=== PATIENT | female | born 1960 | race Two or more races ===

== ENCOUNTER 2024-07-01 22:38 | Inpatient (IN) | payer OTHER, MEDICAID ==
[~2024-07-01] VITALS: Ht 165.1 cm; Wt 72.4 kg
[2024-07-02] VITALS (8 sets, daily range): BP systolic 100–124; BP diastolic 58–68; PULSE 77–97; RESP 17–20; TEMP 97.4–98.7; O2SAT 93–97
--- NOTE | 2024-07-02 00:52 | DVHHPRES ---
History of Present Illness Resident Creating Document: LINDA GOMEZ RESIDENT History of Present Illness 64-year-old female with past medical history of herniated discs and multiple spinal surgeries over the last 2 months, was transferred from [facility] due to a chief complaint of increasing lower back pain since yesterday 06/30/2024. Per patient, she was trying to sit up when all of a sudden she started experiencing a tearing, sharp pain, 10/10 and constant. Denies having similar symptoms in the past. Patient has had four back surgeries in the last 2 months for herniated discs, at baseline reports decreased strength in right leg and has been immobile since May 2024, moreover, patient was discharged from rehab facility in [place] 2 days ago. Per patient, she is unable to stand and only able to move to chair. On review of systems, patient is complaining of fatigue, dyspnea and dysuria. Past Medical History Herniated disc Past Surgical History Spine surgery x4, left hip replacement 2 years ago, gastric sleeve 2016, right wrist surgery Smoke: No ALCOHOL: none Drugs: Marijuana Lives: with Family Review of Systems Constitutional: Yes: Malaise; No: Fever, Chills, Sweats, Weakness, Other Eyes: No: Pain, Vision change, Conjunctivae inflammation, Eyelid inflammation, Other, Redness ENT: No: Ear pain, Ear discharge, Nose pain, Nose discharge, Nose congestion, Mouth pain, Mouth swelling, Throat pain, Throat swelling, Other Respiratory: Shortness of breath; No: Cough, Dry, SOB with excertion, Wheezing, Hemoptysis, Pleuritic Pain, Sputum, Wheezing, Other Cardiovascular: No: Chest Pain, Palpitations, Orthopnea, Paroxysmal Noc. Dyspnea, Edema, Lt Headedness, Other Gastrointestinal: No: Nausea, Vomiting, Abdominal Pain, Diarrhea, Constipation, Melena, Hematochezia, Other Genitourinary: Dysuria; No Frequency, No Incontinence, No Hematuria, No Retention, No Other Musculoskeletal: No: other, neck pain, shoulder pain, arm pain, back pain, hand pain, leg pain, foot pain Skin: No: Rash, Lesions, Jaundice, Bruising, Other Neurological: No: Weakness, Numbness, Incoordination, Change in speech, Confusion, Seizures, Other Allergies: Coded Allergies: NO KNOWN ALLERGIES (Unverified , 07/02/24) Medications Current Medications Medications Dose Ordered Sig/Laisha Route Start Time Stop Time Status Last Admin Dose Admin Acetaminophen 650 mg Q6HP PRN PO 07/02/24 00:45 UNV Enoxaparin Sodium 30 mg DAILY SC 07/02/24 10:00 UNV Gabapentin 100 mg TID PO 07/02/24 06:00 UNV Polyethylene Glycol 17 gm DAILYPRN PRN PO 07/02/24 01:00 UNV Exam General Appearance: Alert, Oriented X3, Cooperative, No acute distress HEENT: Atraumatic, PERRLA, EOMI, Mucous membr. moist/pink Respiratory: Clear to auscultation, Normal air movement Cardiovascular: Regular rate, Normal S1, Normal S2, No murmurs, Other (Suprapubic tenderness to palpation) Abdominal: Normal bowel sounds Extremities: No edema, Normal pulses, Other (Right lower extremity cooler than left lower extremity, however, pulses palpable, denies any paresthesia or pain) Skin: No rashes, No significant lesion Neuro: Normal speech, Sensation intact, Other (Mildly decreased strength in right lower extremity) Psych/Mental Status: Mental status NL, Mood NL Assessment/Plan Assessment/Plan Multiple herniated discs? S/p spine surgery x4 over the last 2 months Acute complicated UTI Generalized weakness - straight catheterization to obtain UA - IV ceftriaxone - low-dose gabapentin (100 mg t.i.d.) due to constipation - acetaminophen 650 mg as needed - urine bacterial culture Constipation Stercoral colitis due to above - CT abdomen pelvis at [facility] showed constipation with large stool burden within the rectum imaging features reflecting stercoral colitis - patient had 1 large BM at [facility] - MiraLax 17 g scheduled daily - Colace 100 mg b.i.d. scheduled - IV NS at 75 cc/hour DVT prophylaxis: Levonox 40mg Goals of care: Full code, discussed for >16 minutes on 07/02/24 Plan discussed with patient Plan discussed with Dr. Martines Plan discussed with: Patient, Other (RN) My Orders Orders - LINDA GOMEZ RESIDENT Procedure Category Date Status Time Admit ADMIT 07/02/24 Transmitted 00:43 Code Status CODE 07/02/24 Transmitted 00:43 Review Orders With MELINA 07/02/24 In Process Adm. 00:43 Regular Diet DIET 07/02/24 Transmitted Breakfast Acetaminophen Tablet PHA 1/25/25 Logged (Tylenol Tablet) 00:45 Notify Md Of Changes MELINA 07/02/24 In Process From Base 00:43 Advance Directive MELINA 07/02/24 In Process 00:43 Basic Metabolic Panel LAB 07/02/24 Logged 00:43 Urinalysis LAB 07/02/24 Logged 00:43 Complete Blood Count LAB 07/02/24 Logged 00:43 Patient Condition ORDERS 07/02/24 Transmitted 00:43 Allergies MELINA 07/02/24 In Process 00:43 Hemoglobin A1c LAB 07/02/24 Logged 00:43 Enoxaparin Sodium PHA 07/02/24 Logged (Lovenox) 10:00 Notify Md Of Changes MELINA 07/02/24 In Process From Base 00:43 Gabapentin Capsule PHA 07/02/24 Logged (Neurontin Capsule) 06:00 Polyethylene Glycol PHA 07/02/24 Logged 17g Powder (Miralax 01:00 Date of Service: Jul 02, 2024 Billing Provider: JAYNA MARTINES MD Common Visit Codes: [id number] INP/OBS CARE (HIGH) Secondary Visit Codes: [id number] CARE PLAN 30 MINUTES LINDA GOMEZ RESIDENT Jul 02, 2024 00:52 JAYNA MARTINES MD Jul 03, 2024 00:20
[2024-07-02] MEDS ORDERED: POLYETHYLENE GLYCOL 17 GM PWDR PO PRN ×2 (01:00→04:30)
[2024-07-02 01:37] LABS: Basophils # (auto) 0.1 10 ^3/uL (0-0.2); Basophils % (auto) 1.3 % (0.0-2.0); Eosinophils # (auto) 0.5 10 ^3/uL (0-0.8); Eosinophils % (auto) 6.9 % (0.0-7.0); Hemoglobin 11.4 g/dL (12.2-16.2); Lymphocytes # (auto) 1.5 10 ^3/uL (0.4-5.4); Lymphocytes % (auto) 19.5 % (10.0-50.0); Mean Corpuscular Hemoglobin 26.4 pg (28.0-32.0); Mean Corpuscular Hgb Conc. 30.8 g/dL (32.0-36.0); Mean Corpuscular Volume 85.8 fL (80.0-100.0); Monocytes # (auto) 0.5 10 ^3/uL (0-1.3); Monocytes % (auto) 6.9 % (0.0-12.0); Neutrophils # (auto) 4.9 10 ^3/uL (1.6-8.6); Neutrophils % (auto) 65.4 % (37.0-80.0); Platelet Count (auto) 330 10^3/uL (140-450); Red Blood Cells 4.31 10^6/uL (4.0-5.20); Red Cell Distribution Width 18.5 % (11.8-14.3); White Blood Cell 7.5 10^3/uL (4.4-10.8)
[2024-07-02 01:47] LABS: Potassium 4.2 mmol/L (3.5-5.1); Sodium 144 mmol/L (136-145)
[2024-07-02 01:48] LABS: Anion Gap 8 (5-15); Calcium 9.8 mg/dL (8.7-10.4); Carbon Dioxide 28 mmol/L (20-31)
[2024-07-02 01:53] LABS: BUN/Creatinine Ratio 25.6 (10.0-20.0); Blood Urea Nitrogen 11 mg/dL (9-23); Glucose 81 mg/dL (74-106)
[2024-07-02 01:56] LABS: Chloride 108 mmol/L (98-107)
[2024-07-02] MEDS ORDERED: ARIP20TA4 PO (02:04)
[2024-07-02] MEDS ORDERED: TRAM50TA2 PO (02:04)
[2024-07-02] MEDS ORDERED: SERT100T PO (02:04)
[2024-07-02] MEDS ORDERED: TRAZ-181 PO (02:04)
[2024-07-02] MEDS: SODIUM CHLORIDE 0.9% 1,000 ML IV SCH (04:30)
[2024-07-02] MEDS: ACETAMINOPHEN 325 MG TAB PO PRN (04:42)
[2024-07-02 05:20] LABS: Urine Bacteria FEW /hpf (None Seen); Urine Blood Negative /uL (Negative); Urine Clarity Clear (Clear); Urine Color Yellow (Yellow); Urine Mucus FEW (None Seen); Urine Protein, UAD TRACE (Negative); Urine Squamous Epithelial Cell FEW /hpf (<5); Urine Urobilinogen Normal (Negative); Urine WBC 16 /HPF (0-5); Urine pH 5.5 (5.0-9.0)
[2024-07-02] MEDS: GABAPENTIN 100 MG CAP PO SCH (05:38)
--- NOTE | 2024-07-02 06:10 | DVH ---
CHEST RADIOGRAPH Indication: Dyspnea Technique: Single frontal view of the chest was obtained Comparison: None IMPRESSION: The heart appears normal in size. The lungs appear clear without focal airspace opacity, effusion, o r pneumothorax.
[2024-07-02] MEDS: cefTRIAXone 1GM/50ML D5W 50 ML IV SCH (09:23)
[2024-07-02] MEDS: ENOXAPARIN SOD 40 MG/0.4 ML SYRINGE SC SCH (09:23)
[2024-07-02] MEDS: DOCUSATE SOD 100 MG CAP PO SCH (09:23)
[2024-07-02] MEDS ORDERED: ENOXAPARIN SOD 40 MG/0.4 ML SYRINGE SC SCH (10:00)
[2024-07-02] MEDS ORDERED: ENOXAPARIN SOD 30 MG/0.3 ML SYRINGE SC SCH (10:00)
[2024-07-02] MEDS: HYDROcodone-ACET 5/325MG TAB PO PRN (21:30)
[2024-07-03] VITALS (8 sets, daily range): BP systolic 108–131; BP diastolic 64–89; PULSE 67–94; RESP 18–20; TEMP 97.9–98.2; O2SAT 92–96
[2024-07-04] VITALS (8 sets, daily range): BP systolic 106–124; BP diastolic 54–85; PULSE 73–104; RESP 15–18; TEMP 97.4–98; O2SAT 92–97
--- NOTE | 2024-07-04 11:06 | DVHPN2 ---
Progress Note Date Seen: Jul 04, 2024 Medical Necessity Reason Pt with a Central, PICC or Fol: Yes The following are medically ne: Foster Catheter Subjective Patient reports: No new complaints Review of Systems: HEENT:Normal, CVS:Normal, RESPIRATORY:Normal, GI:Normal, :Normal, MSK:Normal, NEURO:Normal Objective vital signs Vital Sign Date Time Temp Pulse Resp B/P (MAP) Pulse Ox O2 Delivery O2 Flow Rate FiO2 07/04/24 08:46 97.9 73 15 112/76 (88) 96 97.9 07/03/24 20:00 Nasal Cannula* 2 28 Total Intake and Output 07/03/24 07/03/24 07/04/24 15:00 23:00 07:00 Intake Total 286 ml 722 ml 1000 ml Balance 286 ml 722 ml 1000 ml medications Current Medications Medications Dose Ordered Sig/Laisha Route Start Time Stop Time Status Last Admin Dose Admin Acetaminophen 650 mg Q6HP PRN PO 07/02/24 05:00 07/04/24 05:27 650 MG Enoxaparin Sodium 30 mg DAILY SC 07/02/24 10:00 UNV Gabapentin 100 mg TID PO 07/02/24 06:00 07/04/24 05:27 100 MG Enoxaparin Sodium 40 mg DAILY SC 07/02/24 10:00 07/04/24 09:13 40 MG Polyethylene Glycol 17 gm DAILYPRN PRN PO 07/02/24 04:30 Docusate Sodium 100 mg BID PO 07/02/24 10:00 07/02/24 21:31 100 MG Ceftriaxone Sodium 50 ml @ 100 mls/hr DAILY@09 IV 07/02/24 09:00 07/04/24 09:13 100 MLS/HR Acetaminophen/ Hydrocodone Bitart 1 tab Q6HPRN PRN PO 07/02/24 21:15 07/04/24 09:13 1 TAB Examination: GENERAL:Normal, HEENT:Normal, NECK:Normal, LUNGS:Normal, CVS:Normal, ABDOMEN:Normal, MSK:Normal, SKIN:Normal, NEURO:Normal, :Normal laboratory and microbiology Laboratory Tests 07/02/24 01:25 Test 07/02/24 01:25 Range/Units Serum Glucose 81 74-106 mg/dL Microbiology Date/Time Source Procedure Growth Status 07/02/24 05:08 Voided Urine Urine Culture - Preliminary Resulted Problem List/Assessment/Plan Problem List/Assessment/Plan #1 back pain s/p back surgery: ct scan #2 uti: unasyn #3 bedbound/functional quadriplegia; pt eval advance care planning- full code- time spent 19 mins Plan discussed with: Patient Date of Service: Jul 04, 2024 Billing Provider: JHONATHAN CARDOSO MD Common Visit Codes: [id number] INP/OBS CARE(HIGH) Secondary Visit Codes: [id number] CARE PLAN 30 MINUTES JHONATHAN CARDOSO MD Jul 04, 2024 11:06
[2024-07-04] MEDS: AMPICILLIN & SULBACTAM SODIUM 3 GM in SODIUM CHL 0.9% 100 ML IV SCH (12:55)
--- NOTE | 2024-07-04 13:32 | DVH ---
EXAM: CT LS SPINE WO CONTRAST INDICATION: back pain EXAM DATE: 07/04/2024 01:07 PM COMPARISON: None TECHNIQUE: Multiple axial CT images of the lumbar spine were obtained using bone algorithm. Axial and coronal reformatting was done. Bone and soft tissue windows were reviewed. Radiation Dose Information: CT Dose: CTDI volume is 23.03 mGy. Dose-length product is 782.78 mGy*cm Findings: There are 5 nonrib-bearing lumbar vertebrae. Spinal fusion L2-L5 with intervertebral disc spacers. There is no evidence of an acute fracture or spondylolisthesis. The vertebral body heights are well-m aintained. No spinal canal stenosis. The alignment is within normal limits. The paraspinal soft tissues appear within normal limits. Small hiatal hernia. Partiall visualized tubing in the anterior pelvis (axial image 119). Left renal cysts. Impression: 1. No evidence of an acute fracture. 2. Spinal fusion L2-L5 with intervertebral disc spacers.
[2024-07-05] VITALS (8 sets, daily range): BP systolic 105–145; BP diastolic 66–77; PULSE 74–94; RESP 18–20; TEMP 97.4–98.8; O2SAT 92–100
[2024-07-05 06:00] LABS: Basophils # (auto) 0.1 10 ^3/uL (0-0.2); Basophils % (auto) 1.2 % (0.0-2.0); Eosinophils # (auto) 0.5 10 ^3/uL (0-0.8); Eosinophils % (auto) 8.2 % (0.0-7.0); Hematocrit 35.1 % (36.0-46.0); Hemoglobin 10.8 g/dL (12.2-16.2); Lymphocytes # (auto) 1.6 10 ^3/uL (0.4-5.4); Lymphocytes % (auto) 27.1 % (10.0-50.0); Mean Corpuscular Hgb Conc. 30.8 g/dL (32.0-36.0); Mean Corpuscular Volume 87.7 fL (80.0-100.0); Monocytes # (auto) 0.4 10 ^3/uL (0-1.3); Monocytes % (auto) 7.4 % (0.0-12.0); Neutrophils # (auto) 3.3 10 ^3/uL (1.6-8.6); Neutrophils % (auto) 56.1 % (37.0-80.0); Nucleated Red Blood Cells % 0.2 %; Platelet Count (auto) 294 10^3/uL (140-450); Red Cell Distribution Width 18.5 % (11.8-14.3); White Blood Cell 5.9 10^3/uL (4.4-10.8)
[2024-07-05 06:27] LABS: Alkaline Phosphatase 95 U/L (46-116); Anion Gap 9 (5-15); BUN/Creatinine Ratio 23.3 (10.0-20.0); Calcium 9.2 mg/dL (8.7-10.4); Carbon Dioxide 24 mmol/L (20-31); Potassium 3.5 mmol/L (3.5-5.1); Sodium 144 mmol/L (136-145)
[2024-07-05 06:28] LABS: Alanine Aminotransferase < 9 U/L (7-40); Albumin 3.1 g/dL (3.2-4.8); Aspartate Aminotransferase 12 U/L (13-40); Bilirubin, Total 0.2 mg/dL (0.2-1.0); Blood Urea Nitrogen 7 mg/dL (9-23); Chloride 111 mmol/L (98-107); Glucose 109 mg/dL (74-106); Total Protein 5.2 g/dL (5.7-8.2)
--- NOTE | 2024-07-05 10:11 | DVHPN2 ---
Progress Note Date Seen: Jul 05, 2024 Medical Necessity Reason Pt with a Central, PICC or Fol: Yes The following are medically ne: Foster Catheter Subjective Patient reports: No new complaints Review of Systems: HEENT:Normal, CVS:Normal, RESPIRATORY:Normal, GI:Normal, :Normal, MSK:Normal, NEURO:Normal Objective vital signs Vital Sign Date Time Temp Pulse Resp B/P (MAP) Pulse Ox O2 Delivery O2 Flow Rate FiO2 07/05/24 05:00 98.8 88 18 114/71 (85) 95 98.8 07/04/24 20:00 Room Air* 0 21 Total Intake and Output 07/04/24 07/04/24 07/05/24 15:00 23:00 07:00 Intake Total 268 ml 825 ml 580 ml Output Total 550 ml Balance 268 ml 825 ml 30 ml medications Current Medications Medications Dose Ordered Sig/Laisha Route Start Time Stop Time Status Last Admin Dose Admin Acetaminophen 650 mg Q6HP PRN PO 07/02/24 05:00 07/04/24 05:27 650 MG Enoxaparin Sodium 30 mg DAILY SC 07/02/24 10:00 UNV Gabapentin 100 mg TID PO 07/02/24 06:00 07/05/24 05:25 100 MG Enoxaparin Sodium 40 mg DAILY SC 07/02/24 10:00 07/04/24 09:13 40 MG Polyethylene Glycol 17 gm DAILYPRN PRN PO 07/02/24 04:30 Docusate Sodium 100 mg BID PO 07/02/24 10:00 07/02/24 21:31 100 MG Acetaminophen/ Hydrocodone Bitart 1 tab Q6HPRN PRN PO 07/02/24 21:15 07/05/24 05:25 1 TAB Ampicillin Sodium/ Sulbactam Sodium 3 gm/Sodium Chloride 100 ml @ 100 mls/hr Q6HR IV 07/04/24 12:30 07/05/24 05:25 100 MLS/HR Examination: GENERAL:Normal, HEENT:Normal, NECK:Normal, LUNGS:Normal, CVS:Normal, ABDOMEN:Normal, MSK:Normal, SKIN:Normal, NEURO:Normal, :Normal laboratory and microbiology Laboratory Tests 07/05/24 05:41 Test 07/05/24 05:41 Range/Units Serum Glucose 109 H 74-106 mg/dL Microbiology Date/Time Source Procedure Growth Status 07/02/24 05:08 Voided Urine Urine Culture - Preliminary Resulted Problem List/Assessment/Plan Problem List/Assessment/Plan #1 back pain s/p back surgery: ct scan- lumber fusion #2 uti: unasyn #3 bedbound/functional quadriplegia; pt eval advance care planning- full code- time spent 19 mins Plan discussed with: Patient My Orders My Orders Orders - JHONATHAN CARDOSO MD Procedure Category Date Status Time Insert Foster Catheter MELINA 07/04/24 In Process 11:02 Ampicillin & PHA 07/04/24 In Process Sulbactam Sodium 12:30 Ls Spine Wo Contrast CT 07/04/24 Resulted 11:02 Pt Request For Service PT 07/04/24 Logged 11:02 Date of Service: Jul 05, 2024 Billing Provider: JHONATHAN CARDOSO MD Common Visit Codes: [id number] INP/OBS CARE(HIGH) JHONATHAN CARDOSO MD Jul 05, 2024 10:11
[2024-07-06] VITALS (8 sets, daily range): BP systolic 103–123; BP diastolic 52–83; PULSE 70–95; RESP 14–19; TEMP 97.5–97.9; O2SAT 92–96
--- NOTE | 2024-07-06 10:21 | DVHPN2 ---
Progress Note Date Seen: Jul 06, 2024 Medical Necessity Reason Pt with a Central, PICC or Fol: Yes The following are medically ne: Foster Catheter Subjective Patient reports: No new complaints Review of Systems: HEENT:Normal, CVS:Normal, RESPIRATORY:Normal, GI:Normal, :Normal, MSK:Normal, NEURO:Normal Objective vital signs Vital Sign Date Time Temp Pulse Resp B/P (MAP) Pulse Ox O2 Delivery O2 Flow Rate FiO2 07/06/24 08:47 97.8 87 14 123/83 (96) 93 97.8 07/05/24 20:00 Room Air* 0 21 Total Intake and Output 07/05/24 07/05/24 07/06/24 15:00 23:00 07:00 Intake Total 310 ml 880 ml 650 ml Output Total 1000 ml 530 ml Balance 310 ml -120 ml 120 ml medications Current Medications Medications Dose Ordered Sig/Laisha Route Start Time Stop Time Status Last Admin Dose Admin Acetaminophen 650 mg Q6HP PRN PO 07/02/24 05:00 07/04/24 05:27 650 MG Enoxaparin Sodium 30 mg DAILY SC 07/02/24 10:00 UNV Gabapentin 100 mg TID PO 07/02/24 06:00 07/06/24 06:06 100 MG Enoxaparin Sodium 40 mg DAILY SC 07/02/24 10:00 07/06/24 08:06 40 MG Polyethylene Glycol 17 gm DAILYPRN PRN PO 07/02/24 04:30 Docusate Sodium 100 mg BID PO 07/02/24 10:00 07/06/24 08:05 100 MG Acetaminophen/ Hydrocodone Bitart 1 tab Q6HPRN PRN PO 07/02/24 21:15 07/06/24 08:06 1 TAB Ampicillin Sodium/ Sulbactam Sodium 3 gm/Sodium Chloride 100 ml @ 100 mls/hr Q6HR IV 07/04/24 12:30 07/06/24 06:06 100 MLS/HR Examination: GENERAL:Normal, HEENT:Normal, NECK:Normal, LUNGS:Normal, CVS:Normal, ABDOMEN:Normal, MSK:Normal, SKIN:Normal, NEURO:Normal, :Normal laboratory and microbiology Laboratory Tests 07/05/24 05:41 Test 07/05/24 05:41 Range/Units Serum Glucose 109 H 74-106 mg/dL Microbiology Date/Time Source Procedure Growth Status 07/02/24 05:08 Voided Urine Urine Culture - Final Enterococcus faecalis Complete Problem List/Assessment/Plan Problem List/Assessment/Plan #1 back pain s/p back surgery: ct scan- lumber fusion #2 uti with enterococcus: macrobid #3 bedbound/functional quadriplegia; pt eval advance care planning- full code- time spent 19 mins Plan discussed with: Patient My Orders My Orders Orders - JHONATHAN CARDOSO MD Procedure Category Date Status Time Nitrofurantoin PHA 07/06/24 Verified Capsule (Macrobid) 22:00 Ondansetron Hcl PHA 07/06/24 Verified (Zofran) 10:30 Date of Service: Jul 06, 2024 Billing Provider: JHONATHAN CARDOSO MD Common Visit Codes: [id number] INP/OBS CARE(HIGH) JHONATHAN CARDOSO MD Jul 06, 2024 10:21
[2024-07-06] MEDS: ONDANSETRON HCL 4 MG/2 ML VIAL IV PRN (10:56)
[2024-07-06] MEDS: NITROFURANTOIN 100 mg CAP PO SCH (21:22)
[2024-07-07 01:00] VITALS: BP 128/73; PULSE 73; RESP 18; TEMP 98.3; O2SAT 96
[2024-07-07 05:24] VITALS: BP 124/76; PULSE 80; RESP 17; TEMP 98.3; O2SAT 95
[2024-07-07 08:10] VITALS: PULSE 77; RESP 16; O2SAT 92
[2024-07-07 09:00] VITALS: BP 114/66; PULSE 77; RESP 16; TEMP 97.7; O2SAT 92
--- NOTE | 2024-07-07 10:17 | DVHDS2 ---
Discharge Summary Date of Admission Jul 02, 2024 at 00:05 Date of Discharge: Jul 07, 2024 Labs/Diagnostic Data: Laboratory Results Test 07/05/24 05:41 07/02/24 05:08 07/02/24 01:25 White Blood Count 5.9 10^3/uL (4.4-10.8) Red Blood Count 4.00 10^6/uL (4.0-5.20) Hemoglobin 10.8 g/dL (12.2-16.2) Hematocrit 35.1 % (36.0-46.0) Mean Corpuscular Volume 87.7 fL (80.0-100.0) Mean Corpuscular Hemoglobin 27.0 pg (28.0-32.0) Mean Corpuscular Hemoglobin Concent 30.8 g/dL (32.0-36.0) Red Cell Distribution Width 18.5 % (11.8-14.3) Platelet Count 294 10^3/uL (140-450) Mean Platelet Volume 8.7 fL (6.9-10.8) Neutrophils (%) (Auto) 56.1 % (37.0-80.0) Lymphocytes (%) (Auto) 27.1 % (10.0-50.0) Monocytes (%) (Auto) 7.4 % (0.0-12.0) Eosinophils (%) (Auto) 8.2 % (0.0-7.0) Basophils (%) (Auto) 1.2 % (0.0-2.0) Neutrophils # (Auto) 3.3 10 ^3/uL (1.6-8.6) Lymphocytes # (Auto) 1.6 10 ^3/uL (0.4-5.4) Monocytes # (Auto) 0.4 10 ^3/uL (0-1.3) Eosinophils # (Auto) 0.5 10 ^3/uL (0-0.8) Basophils # (Auto) 0.1 10 ^3/uL (0-0.2) Nucleated Red Blood Cells 0.2 % Sodium Level 144 mmol/L (136-145) Potassium Level 3.5 mmol/L (3.5-5.1) Chloride Level 111 mmol/L (98-107) Carbon Dioxide Level 24 mmol/L (20-31) Anion Gap 9 (5-15) Blood Urea Nitrogen 7 mg/dL (9-23) Creatinine 0.30 mg/dL (0.550-1.02) Glomerular Filtration Rate Calc 118 mL/min (>90) BUN/Creatinine Ratio 23.3 (10.0-20.0) Serum Glucose 109 mg/dL (74-106) Calcium Level 9.2 mg/dL (8.7-10.4) Total Bilirubin 0.2 mg/dL (0.2-1.0) Aspartate Amino Transferase (AST) 12 U/L (13-40) Alanine Aminotransferase (ALT) < 9 U/L (7-40) Alkaline Phosphatase 95 U/L (46-116) Total Protein 5.2 g/dL (5.7-8.2) Albumin 3.1 g/dL (3.2-4.8) Urine Color Yellow (Yellow) Urine Clarity Clear (Clear) Urine pH 5.5 (5.0-9.0) Urine Specific Center 1.020 (1.001-1.035) Urine Protein Trace (Negative) Urine Ketones 2+ (Negative) Urine Blood Negative /uL (Negative) Urine Nitrite Negative (Negative) Urine Bilirubin Negative (Negative) Urine Urobilinogen Normal mg/dL (Negative) Urine Leukocyte Esterase 2+ /uL (Negative) Urine RBC 2 /hpf (0 - 4) Urine Microscopic WBC 16 /HPF (0-5) Urine Squamous Epithelial Cells Few /hpf (<5) Urine Bacteria Few /hpf (None Seen) Urine Mucus Few (None Seen) Urine Glucose Normal mg/dL (Normal) Hemoglobin A1c 5.2 % A1C (<5.7) Other Laboratory Tests 07/05/24 05:41 Brief Hx & Hospital Course: see dictated note Condition at Discharge: Fair Final Diagnosis/Problems List uti Discharge Disposition: Home Discharge Instruct/Medications Diet: Regular Activity: No Restrictions, As Tolerated Follow Up/Referral: [facility] pcp in 1 wk Medications: resume home meds script to pharmacy Discharge Statement: "Patient was advised to return to the ER or call 911 if any headaches, dizziness, shortness of breath, chest pain, abdominal pain, bleeding, fevers, or worsening of medical condition. Patient was counseled about treatment plan, medications, possible side effects, patientverbalized understanding. All questions were answered to the best of my ability. This discharge took greater then 30 minutes in planning, reviewing documentation, counseling the patient, and discussing with other team members." ASSESSMENT ASSESSMENT Assessment uti Date of Service: Jul 07, 2024 Billing Provider: JHONATHAN CARDOSO MD Common Visit Codes: [id number]/OBS DISCH DAY >30min JHONATHAN CARDOSO MD Jul 07, 2024 10:17
[2024-07-07] MEDS ORDERED: DOCU-94 PO ×2 (10:18)
[2024-07-07] MEDS ORDERED: NITR-87 PO ×2 (10:18)
--- NOTE | 2024-07-07 10:27 | DVHDS ---
DATE OF DISCHARGE: 07/07/2024 HISTORY OF PRESENT ILLNESS: The patient is a 64-year-old lady who was admitted with complaints of back pain and has had recent spine surgery. HOSPITAL COURSE: The patient had evidence of UTI. Urine cultures grew Enterococcus faecalis. The patient had a CT of the lumbar spine that showed a spinal fusion at L2 through L5. The patient will now be discharged home with home physical therapy, to resume her home medications as well as to be on Colace p.r.n. for constipation and Artie p.r.n. for pain. She will follow up with her primary in 1 week. FINAL DIAGNOSES: Therefore, * Back pain, status post recent back surgery. * Urinary tract infection with Enterococcus. * Questionable functional quadriparesis. Time spent in discharge planning and review of plan with the patient and nursing and social work supervisor was 38 minutes. MD DAYSI Forbes/GILMA TID: [id number] RECEIPT: [id number]
[2024-07-07 13:00] VITALS: BP 105/74; PULSE 83; RESP 15; TEMP 98; O2SAT 92
[2024-07-07 16:26] VITALS: BP 117/71; PULSE 64; RESP 16; TEMP 98.3; O2SAT 94
== END 2024-07-07 17:50 | disposition home or self-care (01) | DRG 689 ==
LOC: UNDOADMIN 22:41 → CENTRAL 22:41
PROVIDERS: ADMIT Internal Medicine; ATTEND Internal Medicine
DX: N39.0 Urinary tract infection, site not specified (principal); R53.2 Functional quadriplegia; B95.2 Enterococcus as the cause of diseases classified elsewhere; K59.00 Constipation, unspecified; K52.89 Other specified noninfective gastroenteritis and colitis; Z98.1 Arthrodesis status; Z96.642 Presence of left artificial hip joint; Z74.01 Bed confinement status; Z79.899 Other long term (current) drug therapy
CPT/HCPCS: 36415; 71045; 72131; 80048; 80053; 81001; 83036; 85025; 87086; 87088; 87186; 96360; 97110; 97116; 97163; 97530; G0378; J2405

== ENCOUNTER 2024-07-10 08:23 | Emergency (ER) | payer OTHER, MEDICAID ==
[~2024-07-10] VITALS: Ht 167.6 cm; Wt 70.0 kg
[~2024-07-10 08:23] MED LIST: ARIP20TA4 PO; DOCU-94 PO; NITR-87 PO; SERT100T PO; TRAM50TA2 PO; TRAZ-181 PO
--- NOTE | 2024-07-10 08:32 | ED.PDOC ---
History of Present Illness HPI Comments 64 year old female NEREIDA presents to the ED with chief complaint of generalized weakness. EMS reports patient had accidentally rolled out of her bed and was unable to get up or be picked up by her nephew. EMS relays that the patient was treated for a UTI 2 weeks ago in the ED, being admitted for one week, however, she has been unable to bear weigh or walk on her own since then. Patient states she has associated right hip pain from being on the floor for too long. EMS note patient was given 1L of Ns on route. Patient denies any LOC, head injury, back injury, dizziness, headache or N/V. Chief Complaint: Failure to Thrive Time Seen by MD: 08:29 Reviewed Notes: Nurses Notes, Systems Tester Notes, Medications, Allergies Allergies: Coded Allergies: NO KNOWN ALLERGIES (Unverified , 07/02/24) Home Meds Active Scripts Docusate Sodium (Colace) 100 Mg Cap, 100 MG PO BIDP PRN for 30 Days, #60 CAP 2 Refills Prov:JHONATHAN CARDOSO MD 07/07/24 Nitrofurantoin Monohydrate Mac (Macrobid) 100 Mg Cap, 100 MG PO BID for 7 Days, #14 CAP Prov:JHONATHAN CARDOSO MD 07/07/24 Reported Medications Trazodone HCl (Trazodone Hydrochloride) 50 Mg Tab, 100 MG PO, TAB 07/02/24 Sertraline Hcl (Zoloft) 100 Mg Tab, 200 MG PO, TAB 07/02/24 Aripiprazole (Abilify) 20 Mg Tab, 1 TAB PO DAILY, #30 TAB 1 Refill 07/02/24 Tramadol Hcl (Tramadol Hcl) 50 Mg Tab, 50 MG PO Q12HP, MG 07/02/24 Information Source: Patient, Emergency Med Personnel Mode of Arrival: EMS Severity: Moderate Timing: Days Duration: Since onset Prehospital treatment: None Past Medical History PAST MEDICAL HISTORY: UTI'S Surgical History: Denies all surgeries REHABILITATION COORDINATOR History: Denies all REHABILITATION COORDINATOR Hx Family History Family History: Reviewed,noncontributory to illness Social History Smoker: Non-Smoker Alcohol: Denies ETOH Use Drugs: Denies Drug Use Lives In: Home Constitutional: reports: weakness; denies: chills, diaphoresis, fatigue, fever, malaise, sweats, others EENTM: denies: blurred vision, double vision, ear bleeding, ear discharge, ear drainage, ear pain, ear ringing, eye pain, eye redness, hearing loss, mouth pain, mouth swelling, nasal discharge, nose bleeding, nose congestion, nose pain, photophobia, tearing, throat pain, throat swelling, voice changes, others Respiratory: denies: cough, hemoptysis, orthopnea, SOB at rest, shortness of breath, SOB with excertion, stridor, wheezing, others Cardiovascular: denies: chest pain, dizzy spells, diaphoresis, Dyspnea on exertion, edema, irregular heart beat, left arm pain, lightheadedness, palpitations, PND, syncope, others Gastrointestinal: denies: abdomen distended, abdominal pain, blood streaked bowels, constipated, diarrhea, dysphagia, difficulty swallowing, hematemesis, melena, nausea, poor appetite, poor fluid intake, rectal bleeding, rectal pain, vomiting, others Genitourinary: denies: abnormal vagina bleeding, burning, dyspareunia, dysuria, flank pain, frequency, hematuria, incontinence, pain, , vagina discharge, urgency, others Neurological: denies: dizziness, fainting, headache, left sided numbness, left sided weakness, numbness, paresthesia, pre-existing deficit, right sided numbness, right sided weakness, seizure, speech problems, tingling, tremors, weakness, others Musculoskeletal: reports: others (Rt hip pain); denies: back pain, gout, joint pain, joint swelling, muscle pain, muscle stiffness, neck pain Integumetry: denies: bruises, change in color, change in hair/nails, dryness, laceration, lesions, lumps, rash, wounds, others Allergic/Immunocompromised: denies: Difficulty Healing, Frequent Infections, Hives, Itching, others Hematologic/Lymphatic: denies: anemia, blood clots, easy bleeding, easy bruising, swollen glands, others Endocrine: denies: excessive hunger, excessive sweating, excessive thirst, excessive urination, flushing, intolerance to cold, intolerance to heat, unexplained weight gain, unexplained weight loss, others Psychiatric: denies: anxiety, bipolar disorder, depression, hopeless, panic disorder, schizophrenia, sleepless, suicidal, others All Other Systems: Reviewed and Negative Physical Exam General Appearance: Moderate Distress, Normal HEENT: Normal ENT Inspection, PERRL/EOMI Neck: Full Range of Motion, Non-Tender, Normal, Normal Inspection Respiratory: Chest Non-Tender, Lungs Clear, No Accessory Muscle Use, No Respiratory Distress, Normal Breath Sounds Cardiovascular: No Edema, No JVD, No Murmur, No Gallop, Normal Peripheral Pulses, Regular Rate/Rhythm Breast Exam: Deferred Gastrointestinal: No Organomegaly, Non Tender, No Pulsatile Mass, Normal Bowel Sounds, Soft Genitalia: Deferred Pelvic: Deferred Rectal: Deferred Extremities: Decreased range of motion, No calf tenderness, Normal capillary refill, Non-tender, No pedal edema Musculoskeletal : Apperance: Normal Neurologic: Alert, No Motor Deficits, No Sensory Deficits Cerebellar Function: NOT DONE Reflexes: NOT DONE Skin: Dry, Normal Color, Warm Lymphatic: No Adenopathy Was a procedure done? Was a procedure done?: No Differential Dx Considerations may include: Failure to thrive Anemia X-Ray, Labs, Meds, VS Vital Signs Date Time Temp Pulse Resp B/P (MAP) Pulse Ox O2 Delivery O2 Flow Rate FiO2 07/10/24 12:06 85 07/10/24 12:00 89 17 107/86 (93) 93 07/10/24 11:00 75 13 117/63 (81) 93 07/10/24 10:00 79 12 112/64 (80) 92 07/10/24 09:00 79 13 116/65 (82) 89 07/10/24 08:35 97.7 83 12 122/72 (89) 96 97.7 07/10/24 08:35 Room Air* 0 21 07/10/24 08:31 97.7 95 20 132/88 (103) 96 Lab Test 07/10/24 09:52 Range/Units White Blood Count 9.3 # 4.4-10.8 10^3/uL Red Blood Count 4.68 4.0-5.20 10^6/uL Hemoglobin 12.4 12.2-16.2 g/dL Hematocrit 40.9 # 36.0-46.0 % Mean Corpuscular Volume 87.4 80.0-100.0 fL Mean Corpuscular Hemoglobin 26.6 L 28.0-32.0 pg Mean Corpuscular Hemoglobin Concent 30.4 L 32.0-36.0 g/dL Red Cell Distribution Width 19.1 H 11.8-14.3 % Platelet Count 273 140-450 10^3/uL Mean Platelet Volume 9.5 6.9-10.8 fL Neutrophils (%) (Auto) 71.2 37.0-80.0 % Lymphocytes (%) (Auto) 14.2 10.0-50.0 % Monocytes (%) (Auto) 10.8 0.0-12.0 % Eosinophils (%) (Auto) 3.3 0.0-7.0 % Basophils (%) (Auto) 0.5 0.0-2.0 % Neutrophils # (Auto) 6.6 1.6-8.6 10 ^3/uL Lymphocytes # (Auto) 1.3 0.4-5.4 10 ^3/uL Monocytes # (Auto) 1.0 0-1.3 10 ^3/uL Eosinophils # (Auto) 0.3 0-0.8 10 ^3/uL Basophils # (Auto) 0 0-0.2 10 ^3/uL Nucleated Red Blood Cells 0.1 % Sodium Level 141 136-145 mmol/L Potassium Level 4.2 3.5-5.1 mmol/L Chloride Level 107 98-107 mmol/L Carbon Dioxide Level 25 20-31 mmol/L Anion Gap 9 5-15 Blood Urea Nitrogen 7 L 9-23 mg/dL Creatinine 0.40 #L 0.550-1.02 mg/dL Glomerular Filtration Rate Calc 110 >90 mL/min BUN/Creatinine Ratio 17.5 10.0-20.0 Serum Glucose 88 74-106 mg/dL Calcium Level 9.4 8.7-10.4 mg/dL Patient alert. Status post fall. Vitals stable. Answering questions. No sign of any injury. Reviewed her previous visit. She will need placement. No leg swelling. Saturation pristine on room air. Explained to the patient. Continue monitoring. 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 Visualized portions of the left hip prosthesis appear intact and in satisfactory alignment and position. No acute fracture visualized. Sacrum is obscured by bowel gas and stool. Moderate joint space narrowing of the right hip. Mild sclerosis adjacent to the pubic symphysis. No significant soft tissue abnormality identified. IMPRESSION: 1. No evidence of acute bony abnormality. Correlate with clinical findings. 2. Nonacute findings as described above. Time of 1ST Reevaluation: 09:29 Reevaluation 1ST: Unchanged Patient Education/Counseling: Diagnosis, Treatment Family Education/Counseling: No Family Present Departure 1 Departure Time of Disposition: 08:36 Impression: Primary Impression: Musculoskeletal pain Disposition: 01 HOME / SELF CARE / HOMELESS Admit to: Med Surg Condition: Good Discharged With: Self Critical Care Note Critical Care Time?: No Stability Stability form required: No Heart Score Heart Score: Heart Score Response (Comments) Value History N/A 0 EKG N/A 0 Age N/A 0 Risk Factors N/A 0 Troponin N/A 0 Total 0 I personally scribed for SANDIP MYERS MD ([email or web address]) on 07/10/24 at 08:32. Electronically submitted by Alvarez Reynaga ([email or web address]). I personally scribed for SANDIP MYERS MD ([email or web address]) on 07/10/24 at 10:01. Electronically submitted by Alvarez Reynaga ([email or web address]). SANDIP MYERS MD Jul 10, 2024 08:32
[2024-07-10 08:35] VITALS: TEMP 97.7
--- NOTE | 2024-07-10 09:30 | DVH ---
CLINICAL INFORMATION: 64 years old, Female; fall injury. TECHNIQUE: Single AP view of the pelvis was obtained. 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 Visualized portions of the left hip prosthesis appear intact and in satisfactory alignment and position. No acute fracture visualize d. Sacrum is obscured by bowel gas and stool. Moderate joint space narrowing of the right hip. Mild s clerosis adjacent to the pubic symphysis. No significant soft tissue abnormality identified. IMPRESSION: 1. No evidence of acute bony abnormality. Correlate with clinical findings. 2. Nonacute findings as described above.
[2024-07-10 10:12] LABS: Chloride 107 mmol/L (98-107); Potassium 4.2 mmol/L (3.5-5.1); Sodium 141 mmol/L (136-145)
[2024-07-10 10:13] LABS: Anion Gap 9 (5-15); Calcium 9.4 mg/dL (8.7-10.4); Carbon Dioxide 25 mmol/L (20-31)
[2024-07-10 10:18] LABS: BUN/Creatinine Ratio 17.5 (10.0-20.0); Glucose 88 mg/dL (74-106)
[2024-07-10 10:24] LABS: Blood Urea Nitrogen 7 mg/dL (9-23)
[2024-07-10 10:26] LABS: Basophils # (auto) 0 10 ^3/uL (0-0.2); Basophils % (auto) 0.5 % (0.0-2.0); Eosinophils # (auto) 0.3 10 ^3/uL (0-0.8); Eosinophils % (auto) 3.3 % (0.0-7.0); Hematocrit 40.9 % (36.0-46.0); Hemoglobin 12.4 g/dL (12.2-16.2); Lymphocytes # (auto) 1.3 10 ^3/uL (0.4-5.4); Lymphocytes % (auto) 14.2 % (10.0-50.0); Mean Corpuscular Hemoglobin 26.6 pg (28.0-32.0); Mean Corpuscular Hgb Conc. 30.4 g/dL (32.0-36.0); Mean Corpuscular Volume 87.4 fL (80.0-100.0); Monocytes % (auto) 10.8 % (0.0-12.0); Neutrophils # (auto) 6.6 10 ^3/uL (1.6-8.6); Neutrophils % (auto) 71.2 % (37.0-80.0); Nucleated Red Blood Cells % 0.1 %; Platelet Count (auto) 273 10^3/uL (140-450); Red Blood Cells 4.68 10^6/uL (4.0-5.20); Red Cell Distribution Width 19.1 % (11.8-14.3); White Blood Cell 9.3 10^3/uL (4.4-10.8)
[2024-07-10 12:00] VITALS: BP 107/86; RESP 17; O2SAT 93
[2024-07-10 12:06] VITALS: PULSE 85
[2024-07-10 15:51] LABS: Urine Bacteria None Seen /hpf (None Seen)
[2024-07-10 16:00] LABS: Urine Blood Negative /uL (Negative); Urine Clarity Turbid (Clear); Urine Color Yellow (Yellow); Urine Mucus FEW (None Seen); Urine Protein, UAD TRACE (Negative); Urine Specific Gravity 1.018 (1.001-1.035); Urine Squamous Epithelial Cell FEW /hpf (<5); Urine Urobilinogen Normal (Negative); Urine WBC 56 /HPF (0-5); Urine pH 6.5 (5.0-9.0)
== END 2024-07-11 01:30 | disposition home or self-care (01) ==
LOC: EDBD 08:23 → ER 08:23
DX: M25.551 Pain in right hip (principal); M79.18 Myalgia, other site; Z87.440 Personal history of urinary (tract) infections; Z79.899 Other long term (current) drug therapy; W06.XXXA Fall from bed, initial encounter; Y93.89 Activity, other specified; Y92.89 Other specified places as the place of occurrence of the external cause; Y99.8 Other external cause status
CPT/HCPCS: 36415; 72170; 80048; 81001; 85025

== ENCOUNTER 2024-11-11 11:16 | Emergency (ER) | payer OTHER, MEDICAID ==
[~2024-11-11] VITALS: Ht 157.5 cm; Wt 54.5 kg
--- NOTE | 2024-11-11 11:59 | ED.PDOC ---
Back pain HPI HPI Comments 64 y/o F, with PMHX of chronic back pain, NEREIDA, presents to the ED for CC of back pain. EMS reports, patient is coming from home where she c/o thoracic back pain xmonths. Patient reports, that she currently does not take any prescription medications to manage her pain. Patient denies trauma, injury, or fall. No other symptoms or modifying factor present at this time. Chief Complaint: Back Pain Time Seen by MD: 11:50 Reviewed Notes: Nurses Notes, Machine Tool Electrician Notes, Medications, Allergies Allergies: Coded Allergies: NO KNOWN ALLERGIES (Unverified , 07/02/24) Home Meds Active Scripts Docusate Sodium (Colace) 100 Mg Cap, 100 MG PO BIDP PRN for 30 Days, #60 CAP 2 Refills Prov:JHONATHAN CARDOSO MD 07/07/24 Nitrofurantoin Monohydrate Mac (Macrobid) 100 Mg Cap, 100 MG PO BID for 7 Days, #14 CAP Prov:JHONATHAN CARODSO MD 07/07/24 Reported Medications Trazodone HCl (Trazodone Hydrochloride) 50 Mg Tab, 100 MG PO, TAB 07/02/24 Sertraline Hcl (Zoloft) 100 Mg Tab, 200 MG PO, TAB 07/02/24 Aripiprazole (Abilify) 20 Mg Tab, 1 TAB PO DAILY, #30 TAB 1 Refill 07/02/24 Tramadol Hcl (Tramadol Hcl) 50 Mg Tab, 50 MG PO Q12HP, MG 07/02/24 Information Source: Patient, Emergency Med Personnel Mode of Arrival: EMS Timing: Months Duration: Since onset Location of Back pain: (B) Thoracic Severity: Moderate Prehospital treatment: None Onset: Spontaneous History of: Chronic Back Pain Modifying Factors: Nothing Associated signs and symptoms: None Past Medical History PAST MEDICAL HISTORY: UTI'S Surgical History: Denies all surgeries PHARMACY ANCILLARY History: Denies all PHARMACY ANCILLARY Hx Family History Family History: Reviewed,noncontributory to illness Social History Smoker: Non-Smoker Alcohol: Denies ETOH Use Drugs: Denies Drug Use Lives In: Home Musculoskeletal: reports: back pain All Other Systems: Reviewed and Negative ( PER HPI) Physical Exam General Appearance: No Apparent Distress, Normal HEENT: Normal ENT Inspection, Pharynx Normal Neck: Full Range of Motion, Non-Tender, Normal, Normal Inspection Respiratory: Chest Non-Tender, Lungs Clear, No Accessory Muscle Use, No Respiratory Distress, Normal Breath Sounds Cardiovascular: No Edema, No Murmur, No Gallop, Normal Peripheral Pulses, Regular Rate/Rhythm Breast Exam: Deferred Gastrointestinal: No Organomegaly, Non Tender, No Pulsatile Mass, Normal Bowel Sounds, Soft Genitalia: Deferred Pelvic: Deferred Rectal: Deferred Extremities: No calf tenderness, Normal capillary refill, Normal inspection, Normal range of motion, Non-tender, No pedal edema Musculoskeletal : Location: Bilateral Extremity Location: Back Apperance: Tenderness (diffuse tenderness to lower thoracic) Neurologic: Alert, janitor supervisor II-XII nml as Tested, No Motor Deficits, Normal Affect, Normal Mood, No Sensory Deficits Cerebellar Function: Normal Reflexes: Normal Skin: Dry, Normal Color, Warm Lymphatic: No Adenopathy Was a procedure done? Was a procedure done?: No Back Pain Differential Dx Differential Diagnosis: Musculoskeletal Pain, Strain X-Ray, Labs, Meds, VS Vital Signs Date Time Temp Pulse Resp B/P (MAP) Pulse Ox O2 Delivery O2 Flow Rate FiO2 11/11/24 11:21 98.2 90 18 137/86 (103) 98 98.2 Current Medications Medications (Trade) Dose Ordered Sig/Laisha Route Start Time Stop Time Status Last Admin Acetaminophen/ Hydrocodone Bitart ([place] 7.5/325MG Tab) 1 tab ONCE ONCE PO 11/11/24 12:00 11/11/24 12:01 DC 11/11/24 13:09 64-year-old female with chronic back pain presents here for pain control. She states she always has back pain. But she does not have anything at home for it. At this time I have given her [place] p.o.. She states the [place] did not help. Additional Dilaudid has been written for her including Chelsi. This time I have discharged her home. Advised her to follow up with the PCP and pain management physician for further care. Patient agreeable to plan. Time of 1ST Reevaluation: 12:20 Reevaluation 1ST: Unchanged Patient Education/Counseling: Diagnosis, Treatment Family Education/Counseling: No Family Present Departure 1 Departure Time of Disposition: 14:10 Impression: Primary Impression: Chronic back pain Qualified Codes: M54.6 - Pain in thoracic spine; G89.29 - Other chronic pain Disposition: 01 HOME / SELF CARE / HOMELESS Condition: Good Discharged With: Self Critical Care Note Critical Care Time?: No Stability Stability form required: No Heart Score Heart Score: Heart Score Response (Comments) Value History N/A 0 EKG N/A 0 Age N/A 0 Risk Factors N/A 0 Troponin N/A 0 Total 0 I personally scribed for SHARAN GARCIA MD ([email or web address]) on 11/11/24 at 11:58. Electronically submitted by Lea Mckeon ([email or web address]). I personally scribed for SHARAN GARCIA MD ([email or web address]) on 11/11/24 at 12:04. Electronically submitted by Lea Mckeon ([email or web address]). I personally scribed for SHARAN GARCIA MD ([email or web address]) on 11/11/24 at 12:09. Electronically submitted by Lea Mckeon ([email or web address]). I personally scribed for SHARAN GARCIA MD ([email or web address]) on 11/11/24 at 14:10. Electronically submitted by Lea Mckeon ([email or web address]). SHARAN GARCIA MD Nov 11, 2024 11:58
[2024-11-11] MEDS: HYDROcodone-ACET 7.5/325MG TAB PO ONE (13:09)
[2024-11-11] MEDS ORDERED: HYDROmorphone HCL 2 MG/ML VL/or syr IV ONE (15:00)
[2024-11-11 15:08] VITALS: TEMP 98.1
[2024-11-11] MEDS: ONDANSETRON HCL 4 MG/2 ML VIAL IV ONE ×2 (16:34→20:22)
[2024-11-11] MEDS: HYDROmorphone HCL 2 MG/ML VL/or syr IV ONE (16:35)
[2024-11-11 17:41] LABS: Eosinophils # (auto) 0.1 10 ^3/uL (0-0.8); Hemoglobin 10.7 g/dL (12.2-16.2); Lymphocytes # (auto) 0.9 10 ^3/uL (0.4-5.4); Mean Corpuscular Hemoglobin 26.5 pg (28.0-32.0); Mean Corpuscular Hgb Conc. 31.5 g/dL (32.0-36.0); Monocytes # (auto) 0.3 10 ^3/uL (0-1.3); White Blood Cell 5.6 10^3/uL (4.4-10.8)
[2024-11-11 17:43] LABS: Basophils # (auto) 0.1 10 ^3/uL (0-0.2); Basophils % (auto) 1.3 % (0.0-2.0); Eosinophils % (auto) 1.4 % (0.0-7.0); Hematocrit 34.1 % (36.0-46.0); Lymphocytes % (auto) 16.7 % (10.0-50.0); Mean Corpuscular Volume 84.1 fL (80.0-100.0); Monocytes % (auto) 5.5 % (0.0-12.0); Neutrophils # (auto) 4.2 10 ^3/uL (1.6-8.6); Neutrophils % (auto) 75.1 % (37.0-80.0); Platelet Count (auto) 325 10^3/uL (140-450); Red Blood Cells 4.06 10^6/uL (4.0-5.20); Red Cell Distribution Width 24.3 % (11.8-14.3)
[2024-11-11 17:46] LABS: Potassium 3.9 mmol/L (3.5-5.1); Sodium 140 mmol/L (136-145)
[2024-11-11 17:47] LABS: Anion Gap 10 (5-15); Calcium 9.4 mg/dL (8.7-10.4); Carbon Dioxide 23 mmol/L (20-31)
[2024-11-11 17:52] LABS: BUN/Creatinine Ratio 20.6 (10.0-20.0); Glucose 89 mg/dL (74-106)
[2024-11-11 18:09] LABS: Blood Urea Nitrogen 7 mg/dL (9-23); Chloride 107 mmol/L (98-107)
[2024-11-11 19:58] VITALS: PULSE 86; RESP 18; O2SAT 98
[2024-11-11] MEDS: MORPHINE SULFATE 4 MG/ML SYR/VIAL IV ONE (20:21)
[2024-11-11 20:51] VITALS: BP 135/82; PULSE 85; RESP 14
== END 2024-11-11 19:47 | disposition home or self-care (01) ==
LOC: EDBD 11:16 → ER 11:16 → EDUNIT# 11:16 → ER 19:47
DX: G89.29 Other chronic pain (principal); M54.6 Pain in thoracic spine; Z79.899 Other long term (current) drug therapy
CPT/HCPCS: 36415; 80048; 85025; 96374; 96375; 96376; 99285; J1171; J2270; J2405